=== PATIENT | male | born 1955 | race Caucasian/White ===

== ENCOUNTER 2023-03-02 15:29 | Emergency (ER) | payer OTHER ==
--- OUTSIDE RECORDS SUMMARY | 2023-03-02 15:33 | XMS REPORT | Continuity of Care Document ---
:1955 Author Organization [facility] t Address [address] [place] [address] [place] [id number] Care Team Providers Name Role Phone BRIDGER TORO I Primary Care Physician Unavailable Nurse, [facility] Attending Clinician Unavailable Unknown, Attending Attending Clinician Unavailable Doreen Ayala MD Attending Clinician DOREEN AYALA Attending Clinician Unavailable UNKNOWN, ATTENDING Attending Clinician Unavailable Britt Latham MD Attending Clinician Doctor Unassigned, [place] Attending Clinician Unavailable Nereyda Hurley PT Attending Clinician Unavailable Marina Caba MA Attending Clinician Unavailable Mikki Mojica MA Attending Clinician Unavailable Jose Maria Gleason NP Attending Clinician Diamante Vaz MD Attending Clinician Heather Hyde NP Attending Clinician Kelsey Madden PT Attending Clinician Unavailable Martha Gonzalez Attending Clinician Unavailable BRITT LATHAM Admitting Clinician Unavailable Payers Payer Name Policy Type Policy Number Effective Date Expiration Date S ource Problems Condition Condition Condition Status Onset Resolution Last Treating Co mments Source Name Details Category Date Date Treatment Clinician Date Prostate Prostate Disease Active 2021-10 [facility] cancer cancer 2 st 00:00: Hospita 00 l Lower Lower Disease Active Methodi urinary urinary 07-02 st tract tract 00:00: Hospita symptoms symptoms 00 l due to due to benign benign prostatic prostatic hyperplasi hyperplasi a a Obesity, Obesity, Disease Active Metho di Class I, Class I, 07-02 BMI BMI 00:00: Hospita 30-34.9 30-34.9 00 l Prostate Prostate Disease Active [facility] di cancer cancer 07-02 00:00: Hospita 00 l Benign Benign Disease Active 2019-10 Methodi prostatic prostatic 10-06 st hyperplasi hyperplasi 00:00: Ho spita a without a without 00 l urinary urinary obstructio obstructio n n Sleep Sleep Disease Active Methodi disorder disorder 06-10 00:00: Hospita 00 l Unspecifie Unspecifie Disease Active Overview : Methodi d d 04-[address] hemorrhoid hemorrhoid 00:00: g of this Hospita s s 00 note l might be different from the original. Formattin g of this note might be different from the original. Added automatic ally from request for surgery [id number] matting of this note might be different from the original. Formattin g of this note might be different from the original. Added automatic ally from request for surgery [id number] ED ED Disease Active Methodi (erectile (erectile 04-23 dysfunctio dysfunctio 00:00: Ho spita n) of n) of 00 l organic organic origin origin Hyperlipid Hyperlipid Disease Active M ethodi emia emia 01-09 00:00: Hospita 00 l Hypertensi Hypertensi Disease Active M ethodi on on 01-09 00:00: Hospita 00 l Thalassemi Thalassemi Disease Active M ethodi a minor a minor 01-09 00:00: Hospita 00 l Allergies, Adverse Reactions, Alerts Allergy Allergy Status Severity Reaction(s) Onset Inactive Treating Comm ents Source Name Type Date Date Clinician Sulfa Propensi Active Hives Methodi (Sulfona ty to 816 st mide adverse 00:00: Hospita Antibiot reaction 00 l ics) s to drug SULFA Drug Active Hives Univers (SULFONA Class 9-20 ity of MIDE 00:00: [place] ANTIBIOT 00 Medical ICS) Branch Sulfa Propensi Active Hives Univers (Sulfona ty to 9-20 ity of mide adverse 00:00: [place] Antibiot reaction 00 Medica l ics) s Branch Family History Family Member Diagnosis Comments Start Date Stop Date Source Natural father Heart disease [facility] Natural mother Cancer [facility] Social History Social Habit Start Date Stop Date Quantity Comments Source Gender identity [facility] Sexual orientation [facility] Hospital Exposure to 2023-02-20 2023-03-02 Not sure University SARS-CoV-2 (event) 00:00:00 14:48:00 [facility] Tobacco use and 2023-03-02 2023-03-02 Smokeless tobacco Un iversity of exposure 00:00:00 00:00:00 non-user [facility] History of Social 2022-12-07 2022-12-07 [facility] function 00:00:00 00:00:00 [facility] Alcohol intake 2022-11-09 2022-11-09 Current drinker Metho dist 00:00:00 00:00:00 of [facility] (finding) Cigarettes smoked 2022-06-02 2022-06-02 [facility] current (pack per 00:00:00 00:00:00 Hospita l day) - Reported Cigarette 2022-06-02 2022-06-02 Hindu pack-years 00:00:00 00:00:00 [facility] Alcohol Comment 2017-04-26 2017-04-26 [facility] of 00:00:00 00:00:00 [facility] History of tobacco 2003-10-04 Snuff User Method ist use 00:00:00 [facility] Sex Ass[birth year] At [birth year] [facility] 00:00:00 00:00:00 Hospital Smoking Status Start Date Stop Date Source Never smoked tobacco [facility] Ex-smoker 2022-06-02 00:00:00 2022-06-02 00:00:00 [facility] [place] Medications Ordered Filled Start Stop Current Ordering Indication Dosage Frequency Signature Comments Components Source Medication Medication Date Date Medication? Clinician (SIG) Name Name cyanocobala Yes 5000ug Place Uni vers min, 5-30 5,000 mcg ity of vitamin 14:52: under the [place] B-12, 5,000 58 tongue Medica l mcg Subl daily. Branch tadalafiL 5 Yes 1 tablet Un becca mg tablet 5-30 Orally ity of 14:52: Once a [place] 58 day, prn Medical Branch vitamin C Yes 2000mg Take 2 Univ ers with law 5-30 tablets by ity of hips 1,000 14:52: mouth in [place] as mg tablet 18 the Medical morning. Branch [place]-3-DHA Yes 2000mg Take 2,000 Univers -EPA-Fish 5-30 mg by ity of Oil 1,000 14:52: mouth [place] mg (120 18 daily. Medical mg-180 mg) Branch Cap UBIDECARENO Yes 400mg Take 400 U nivers NE (COQ-10 5-30 mg by ity of ORAL) 14:52: mouth [place] 18 daily. Medical Branch ANTIOX Yes 1{tbl} Take 1 Univers #8/OM3/DHA/ 5-30 tablet by ity of EPA/LUT/PAYAL 14:52: mouth 2 Von as X 18 (two) Medical (PRESERVISI times Branch ON AREDS 2, daily. OMEGA-3, ORAL) CALCIUM Yes 5000U Take 5,000 Uni vers CARBONATE/V 5-30 Units by ity of ITAMIN D3 14:52: mouth [place] (VITAMIN 18 daily. Medical D-3 ORAL) Branch GREEN TEA Yes 400mg Take 400 Uni vers EXTRACT 5-30 mg by ity of ORAL 14:52: mouth [place] 18 daily. Medical Branch FERROUS Yes 1{tbl} Take 1 Univer s FUMARATE/ 5-30 tablet by ity of T BCOMP,C 14:52: mouth [place] (SUPER B 18 daily. Medical COMPLEX Branch ORAL) GLUC/CHND/O Yes 1{tbl} Take 1 Un becca M3/DHA/EPA/ 5-30 tablet by ity of FISH/STR 14:52: mouth [place] (GLUCOSAMIN 18 daily. Medica l E Branch CHONDROITIN PLUS ORAL) hydrocortis Yes 25mg Insert 1 Un becca one 25 mg 5-30 Suppositor ity of suppository 14:52: y [place] 18 rectum in Medical the Branch morning and 1 Suppositor y in the evening. Myrbetriq 2023-0 Yes TAKE ONE Meth juana 50 mg 4-[address] tablet 00:00: MOUTH Hospita extended 00 DAILY l release 24 hr mirabegron 2022-0 2023- No 50mg QD Take 1 Meth juana (Myrbetriq) 23 04-25 tablet (50 s t 50 mg 00:00: 00:00 mg total) Hospit a tablet 00 :00 by mouth l extended daily for release 24 30 days. hr finasteride 2022-0 Yes 5mg QD Take 1 Meth juana (PROSCAR) 5 2-06 tablet (5 st mg tablet 10:42: mg total) Hos mathieu 36 by mouth l daily. simvastatin 0 Yes 20mg QD Take 1 Meth juana (ZOCOR) 20 2-06 tablet (20 st mg tablet 10:42: mg total) Hos mathieu 36 by mouth l nightly. cycloSPORIN 0 Yes 1[drp] Q.5D 1 drop 2 Methodi E 2-06 (two) st (RESTASIS) 10:42: times a Hosp janeth 0.05 % 36 day. l ophthalmic emulsion lisinopriL 0 Yes 10mg QD Take 1 Metho di (PRINIVIL) 2-06 tablet (10 st 10 mg 10:42: mg total) Hospita tablet 36 by mouth l daily. CHONDROITIN 0 Yes Take by Met hodi SULFATE A 2-[address] ORAL 10:42: Hospita 36 l omega-3 0 Yes Take by Methodi fatty acids 2-[address] (FISH OIL 10:42: Hospita CONCENTRATE 36 l ORAL) ascorbic 2022-0 Yes 100mg QD Take 1 Method i acid, 2-[address] vitamin C, 10:42: (100 mg Hosp janeth (VITAMIN C) 36 total) by l 100 MG mouth tablet daily. vitamin B 0 Yes Take by Metho di complex vit 2-[address] C no.4 10:42: Hospita (SUPER B 36 l COMPLEX + C ORAL) methylsulfo 2022-0 Yes Take by Met hodi nylmethane 2-[address] (MSM ORAL) 10:42: Hospita 36 l glucosamine 2022-0 Yes Take by Met hodi /chondroiti 2-[address] n/C/Mack 10:42: Hospita (GLUCOSAMIN 36 l E 1500 COMPLEX ORAL) cholecalcif Yes Take by Met ahmet luis, 11-[address] vitamin D3, 10:42: Hospit a (VITAMIN D3 36 l ORAL) fluticasone Yes 100ug QD 2 sprays M ethodi propionate 11-09 ([address] (FLONASE) 10:42: total) by Hos mathieu 50 36 Each Nare l mcg/actuati route on nasal daily. spray docusate 2021-10 No 100mg Q.5D Take 1 Metho di sodium 11-[address] (Colace) 00:00: 05:59 (100 mg Hospi ta 100 MG 00 :00 total) by l capsule mouth 2 (two) times a day for 30 days. traMADoL 2021-10 [id number] 50mg Q6H Take 1 Metho di (ULTRAM) 50 11-05 tablet (50 s t mg tablet 00:00: 05:59 mg total) Ho spita 00 :00 by mouth l every 6 (six) hours as needed for moderate pain for up to 10 days .acute pain. oxybutynin 2021-10 10mg Q24H Take 1 Meth juana XL 11-05 tablet (10 st (Ditropan 00:00: 05:59 mg total) Ho spita XL) 10 MG 00 :00 by mouth l 24 hr daily as tablet needed (bladder spasms) for up to 10 days. ciprofloxac 2021-10 No 500mg Q.5D Take 1 Me thodi in (Cipro) 11-[address] 500 MG 00:00: 05:59 (500 mg Hospita tablet 00 :00 total) by l mouth 2 (two) times a day for 3 days. potassium 2021-10 Take by Meth juana bicarbonate 11-[address] /cit ac 06:12: 00:00 Hospita (POTASSIUM 52 :00 l BICARB-CITR IC ACID ORAL) tadalafiL 2021-10 No 5mg Q24H Take 1 Metho di (CIALIS) 5 11-04 tablet (5 st MG tablet 06:12: 00:00 mg total) Ho spita 06 :00 by mouth l daily as needed for erectile dysfunctio n. GREEN TEA 2021-10 Take by Meth juana EXTRACT 10-[address] ORAL 13:44: 00:00 Hospita 44 :00 l tamsulosin 2021-10 .4mg QD Take 1 Meth juana (FLOMAX) 10-[address] 0.4 mg 13:44: 00:00 (0.4 mg Hospita capsule 01 :00 total) by l mouth daily. HYDROcodone 2021-10 No [id number] 1{tbl} Q6H Take 1 Methodi -acetaminop 10-[address] hen (NORCO) 13:43: 00:00 mouth Hosp janeth 5-325 mg 56 :00 every 6 l per tablet (six) hours as needed for moderate pain .acute pain. Max Daily Amount: 4 tablets tadalafiL 2021-10 No 20mg Q24H Take 1 Metho di (CIALIS) 20 10-25- tablet (20 s t mg tablet 00:00: 05:59 mg total) Ho spita 00 :00 by mouth l daily as needed for erectile dysfunctio n for up to 90 days. tadalafiL 2021-10 No 5mg Q24H Take 1 Metho di (CIALIS) 5 10-25 tablet (5 st MG tablet 00:00: 05:59 mg total) Ho spita 00 :00 by mouth l daily as needed for erectile dysfunctio n for up to 30 days. tadalafiL 2021-10 No 20mg Q24H Take 1 Metho di (CIALIS) 20 10-25 12- tablet (20 s t mg tablet 00:00: 00:00 mg total) Ho spita 00 :00 by mouth l daily as needed for erectile dysfunctio n for up to 30 days. ANTIOX 2017-0 Yes 1{tbl} Take 1 Univers #8/OM3/DHA/ 9-21 tablet by ity of EPA/LUT/PAYAL 13:16: mouth 2 Von as X 11 (two) Medical (PRESERVISI times Branch ON AREDS 2, daily. OMEGA-3, ORAL) CALCIUM Yes 5000U Take 5,000 Uni vers CARBONATE/V 9-21 Units by ity of ITAMIN D3 13:16: mouth [place] (VITAMIN 11 daily. Medical D-3 ORAL) Branch GREEN TEA Yes 400mg Take 400 Uni vers EXTRACT 9-21 mg by ity of ORAL 13:16: mouth [place] 11 daily. Medical Branch cyanocobala Yes 5000ug Place Uni vers min, 9-21 5,000 mcg ity of vitamin 13:16: under the [place] B-12, 11 tongue Medical (VITAMIN daily. Branch B-12) 5,000 mcg Subl FERROUS 2017- Yes 1{tbl} Take 1 Univer s FUMARATE/ 9-21 tablet by ity of T BCOMP,C 13:16: mouth [place] (SUPER B 11 daily. Medical COMPLEX Branch ORAL) GLUC/CHND/O Yes 1{tbl} Take 1 Un becca M3/DHA/EPA/ 9-21 tablet by ity of FISH/STR 13:16: mouth [place] (GLUCOSAMIN 11 daily. Medica l E Branch CHONDROITIN PLUS ORAL) hydrocortis Yes 25mg Insert 25 U nivers one 25 mg 9-21 mg into ity of suppository 13:16: rectum 2 [place] 11 (two) Medical times Branch daily. vitamin C Yes 2000mg Take 2,000 Univers with law 9-07 mg by ity of hips 13:11: mouth [place] (VITAMIN C) 06 daily. Medica l 1,000 mg Branch tablet [place]-3-DHA Yes 2000mg Take 2,000 Univers -EPA-Fish 9-07 mg by ity of Oil (FISH 13:11: mouth [place] OIL) 1,000 06 daily. Medical mg (120 Branch mg-180 mg) Cap UBIDECARENO 2017 Yes 400mg Take 400 U nivers NE (COQ-10 9-07 mg by ity of ORAL) 13:11: mouth [place] 06 daily. Medical Branch acetaminoph Yes 1{tbl} Take 1 Un becca en-codeine 7-28 tablet by ity of 300-30 mg 00:00: mouth [place] tablet 00 every 4 Medical (four) Branch hours as needed for Pain (scale 1-3). acetaminoph 2017-0 Yes 1{tbl} Take 1 Un becca en-codeine 7-28 tablet by ity of 300-30 mg 00:00: mouth [place] tablet 00 every 4 Medical (four) Branch hours as needed for Pain (scale 1-3). HYDROmorphO 2017-0 Yes 2mg Take 1 Univ ers ne 2 mg 7-27 tablet by ity of tablet 00:00: mouth [place] 00 every 4 Medical (four) Branch hours as needed for Pain (scale 7-10). gabapentin 2017-0 Yes 300mg Take 1 Univ ers 300 mg 7-27 capsule by ity of capsule 00:00: mouth [place] 00 every 8 Medical (eight) Branch hours. For pain scale 1-3 naproxen 2017-0 Yes 500mg Take 1 Univer s 500 mg 7-27 tablet by ity of tablet 00:00: mouth 2 [place] 00 (two) Medical times Branch daily with meals. HYDROmorphO 2017-0 Yes 2mg Take 1 Univ ers ne 2 mg 7-27 tablet by ity of tablet 00:00: mouth [place] 00 every 4 Medical (four) Branch hours as needed for Pain (scale 7-10). gabapentin 2017-0 Yes 300mg Take 1 Univ ers 300 mg 7-27 capsule by ity of capsule 00:00: mouth [place] 00 every 8 Medical (eight) Branch hours. For pain scale 1-3 naproxen 2017-0 Yes 500mg Take 1 Univer s 500 mg 7-27 tablet by ity of tablet 00:00: mouth 2 [place] 00 (two) Medical times Branch daily with meals. alfuzosin 2015-0 Yes 10mg Take 10 mg Un becca (UROXATRAL) 8-02 by mouth ity of 10 mg 24 hr 00:00: [place]. [place] tablet 00 Medical Branch alfuzosin 2016-0 Yes 10mg Take 1 Univer s (UROXATRAL) 8-02 tablet by ity of 10 mg 24 hr 00:00: mouth in [place] tablet 00 the Medical morning. Branch PROCTOZONE- 2016-0 Yes APPLY TO Un becca HC 2.5 % 8 THE ity of rectal 00:00: AFFECTED [place] cream 00 AREA BID Medical FOR 7 DAYS Branch PROCTOZONE- 2016-0 Yes APPLY TO Un becca HC 2.5 % 05-04 THE ity of rectal 00:00: AFFECTED [place] cream 00 AREA BID Medical FOR 7 DAYS Branch CIALIS 20 Yes 20mg Take 20 mg Un becca mg tablet 7-21 by mouth ity of 00:00: as needed. 00 Medical Branch CIALIS 20 Yes 20mg Take 1 Univer s mg tablet 7-21 tablet by ity o f 00:00: mouth as 00 needed. Medical Branch lisinopril Yes 10mg Take 10 mg U nivers (PRINIVIL,Z 7-13 by mouth ity of ESTRIL) 10 00:00: daily. [place] mg tablet 00 Medical Branch simvastatin Yes 20mg Take 20 mg Univers (ZOCOR) 20 7-13 by mouth ity o f mg tablet 00:00: every [place] 00 evening. Medical Branch lisinopril Yes 10mg Take 1 Unive rs (PRINIVIL,Z 7-13 tablet by ity of ESTRIL) 10 00:00: mouth in Von as mg tablet 00 the Medical morning. Branch simvastatin Yes 20mg Take 1 Univ ers (ZOCOR) 20 7-13 tablet by ity of mg tablet 00:00: mouth [place] 00 every Medical evening. Branch Vital Signs Vital Name Observation Time Observation Value Comments Source Systolic blood 2023-03-02 20:08:00 157 mm[Hg] Univer sity of pressure [facility] Diastolic blood 2023-03-02 20:08:00 107 mm[Hg] Unive rsity of pressure [facility] Heart rate 2023-03-02 20:08:00 82 /min [facility] Body temperature 2023-03-02 20:08:00 36.39 Kesha [facility] Res[facility] rate 2023-03-02 20:08:00 18 /min [facility] ersity [facility] Body weight 2023-03-02 20:08:00 110.904 kg [facility] BMI 2023-03-02 20:08:00 35.08 kg/m2 [facility] Oxygen saturation in 2023-03-02 20:08:00 95 /min [facility] Arterial blood by [facility] [place] [facility] Pulse oximetry Branch Systolic blood 2022-09-04 17:56:13 112 mm[Hg] Method is Hospital pressure Diastolic blood 2022-09-04 17:56:13 70 mm[Hg] [facility] pressure Heart rate 2022-09-04 17:56:13 78 /min [facility] [place] Body temperature 2022-09-04 17:56:13 35.94 Kesha [facility] Respiratory rate 2022-09-04 17:56:13 16 /min [facility] Oxygen saturation in 2022-09-04 17:56:13 91 /min [facility] Arterial blood by Pulse oximetry Body height 2022-09-03 12:10:00 177.8 cm [facility] [place] Body weight 2022-09-03 12:10:00 106.142 kg [facility] [place] BMI 2022-09-03 12:10:00 33.58 kg/m2 [facility] [place] Procedures Procedure Date / Time Performing Clinician Source Performed ASSIGNMENT OF BENEFITS 2023-03-02 19:38:52 [facility] [place] [facility] TEST IN QUESTION- 2022-11-09 17:41:00 Britt Latham [facility] AMBIGUOUS ORDER [id number], POST-PROSTATECTOMY 2022-11-09 17:41:00 Britt Latham [facility] TEST AUTHORIZATION 2022-11-09 17:41:00 Britt Latham [facility] FL CYSTOGRAM MINIMUM 3 VW 2022-09-10 16:08:11 Britt Latham [facility] HEMOGLOBIN & HEMATOCRIT 2022-09-04 17:41:00 Gabby Engel [facility] BASIC METABOLIC PANEL 2022-09-04 09:08:00 [facility] HEMOGLOBIN & HEMATOCRIT 2022-09-04 09:08:00 [facility] ESTIMATED GFR 2022-09-04 09:08:00 Britt Latham [facility] BASIC METABOLIC PANEL 2022-09-03 17:13:00 Britt Latham [facility] HEMOGLOBIN & HEMATOCRIT 2022-09-03 17:13:00 Britt Latham [facility] ESTIMATED GFR 2022-09-03 17:13:00 Britt Latham [facility] SURGICAL PATHOLOGY 2022-09-03 15:44:00 Britt Latham [facility] REQUEST HC NERVE BLOCK QUADRATUS 2022-09-03 13:36:16 Diamante Vaz Met [facility] LUMBORUM VA AN ELECTIVE 2022-09-03 13:34:00 Nusrat Neely spital ENDOTRACHEAL AIRWAY [place]celia PROSTATECTOMY, 2022-09-03 13:25:00 Britt Lathamtal LAPAROSCOPIC, ROBOT-ASSISTED ABO/RH 2022-09-03 12:01:00 Britt Lathamtal PREPARE RBC 2022-09-03 12:01:00 Monie, Thaiphi Akin Lou spianuj URINALYSIS SCREEN AND 2022-08-25 19:53:00 [facility] MICROSCOPY, WITH REFLEX Shefali TO CULTURE TYPE AND SCREEN 2022-08-25 19:52:00 [facility] Shefali TESTOSTERONE, TOTAL AND 2022-08-25 19:52:00 [facility] Branch FREE, IMMUNOASSAY AND Shefali CALCULATION (FOR ADULT MALES) PROTHROMBIN TIME WITH INR 2022-08-25 19:52:00 [facility] PARTIAL THROMBOPLASTIN 2022-08-25 19:52:00 [facility] TIME (PTT) Shefali HIV 1/2 ANTIGEN/ANTIBODY, 2022-08-25 19:52:00 [facility] FOURTH GENERATION, WITH Shefali REFLEXES BASIC METABOLIC PANEL 2022-08-25 19:52:00 [facility] Shefali CBC WITH PLATELET AND 2022-08-25 19:52:00 [facility] DIFFERENTIAL Shefali ESTIMATED GFR 2022-08-25 19:52:00 Britt Latham maggi HEPATIC FUNCTION PANEL 2022-08-25 19:52:00 Heather Hyde [facility] URINE CULTURE 2022-08-25 19:50:00 Britt Latham maggi ECG 12-LEAD 2022-08-25 19:43:21 Rosibel [facility] maggi Meehan MRI PROSTATE WWO CONTRAST 2022-07-01 18:58:45 Britt Latham [facility] Plan of Care Planned Activity Planned Date Details Comments Source Future Scheduled 2023-03-02 65+ [facility]OCOCCAL [facility] Test 10:03:41 VACCINE (1 - PCV) [code = 65+ PNEUMOCOCCAL VACCINE (1 - PCV)] Future Scheduled 2023-03-02 Hepatitis C screening [facility] Test 10:03:41 (procedure) [code = 028210579] Future Scheduled 2023-03-02 COLONOSCOPY SCREENING [facility] Test 10:03:41 [code = COLONOSCOPY SCREENING] Future Scheduled 2023-03-02 COVID-19 VACCINE (4 - [facility] Test 10:03:41 Booster for Moderna series) [code = COVID-19 VACCINE (4 - Booster for Moderna series)] Future Scheduled 2023-03-02 INFLUENZA VACCINE Method ist Hospital Test 10:03:41 [code = INFLUENZA VACCINE] Encounters Start End Encounter Admission Attending Care Care Encounter Source Date/Time Date/Time Type Type Clinicians Facility Department ID 2023-03-02 2023-03-02 Nurse Nurse, [facility] [id number] Univers 15:00:00 15:20:00 Visit Unknown, Attending HEALTH 350.1.13.10 Doreen Gramajo 4.2.7.2.686 [facility]?BLEA [phone] [address] MEDICAL OFFICE BUILDING 2023-03-02 2023-03-02 Outpatient R JAMAR [facility] [id number] Univers 15:00:00 15:00:00 DOREEN [facility] 2023-03-02 2023-03-02 Outpatient R FERNANDA [facility] [id number] Univers 14:40:00 14:40:00 ATTENDING [facility] 2023-03-02 2023-03-02 Telephone Miles, 1.2.840.1 [id number] Methodi 00:00:00 00:00:00 Britt Mcclain 69270.1.1 984 3.430.2.7 Hospit a .3.547294 l .8 2023-03-02 2023-03-02 Orders Doctor SHUKLA 1.2.840.114 [id number] Univers 00:00:00 00:00:00 Only Unassigned, DEONTE 350.1.13.10 ity of [place] [facility] 4.2.7.2.686 Von as [phone] [place] [address] Branch 2023-02-15 2023-02-15 Treatment Britt Latham. 1.2.840.1 [id number] Methodi 10:30:00 11:15:00 Nereyda Hurley [address]54.1.[address] 3.430.2.7 Hospit a .3.621855 l .8 2023-02-15 2023-02-15 Travel 1.2.840.1 1.2.791.430 [id number] Methodi 00:00:00 00:00:[address] 3.430.2.7 0.2.7.3.698 Ho spita .3.751715 084.8 l .8 2023-02-15 2023-02-15 [facility]patient [facility] [id number] [place] 00:00:00 00:00:00 BRITT [address] 2023-02-01 2023-02-01 Treatment Britt Latham. 1.2.840.1 [id number] Methodi 10:30:00 11:15:00 Nereyda Hurley 61960.1.[address] 3.430.2.7 Hospit a .3.095677 l .8 2023-02-01 2023-02-01 Travel 1.2.840.1 1.2.906.846 [id number] Methodi 00:00:00 00:00:[address] 3.430.2.7 0.2.7.3.698 Ho spita .3.080563 084.8 l .8 2023-02-01 2023-02-01 Outpatient [facility] [id number] [place] 00:00:00 00:00:00 BRITT [address] 2023-01-25 2023-01-25 Refill Yeison, 1.2.840.1 [id number] Methodi 00:00:00 00:00:00 Britt Mcclain 07127.1.[address] 3.430.2.7 Hospit a .3.394595 l .8 2023-01-18 2023-01-18 Treatment Britt Latham Camilo. 1.2.840.1 [id number] 001 [id number] Methodi 10:30:00 11:15:00 Nereyda Hurley 15769.1.[address] 3.430.2.7 Hospit a .3.774542 l .8 2023-01-18 2023-01-18 Travel 1.2.840.1 1.2.827.679 [id number] Methodi 00:00:00 00:00:[address] 3.430.2.7 0.2.7.3.698 Ho spita .3.055444 084.8 l .8 2023-01-18 2023-01-18 [facility] [id number] [place] 00:00:00 00:00:00 BRITT [address] 2023-01-04 2023-01-04 Treatment Yeison Britt Page. 1.2.840.1 [id number] Methodi 10:30:00 11:15:00 Nereyda Hurley 14786.1.[address] 3.430.2.7 Hospit a .3.294909 l .8 2023-01-04 2023-01-04 [facility] [id number] [place] 00:00:00 00:00:00 BRITT [address] 2022-12-21 2022-12-21 Treatment Yeison Britt Page. 1.2.840.1 [id number] Methodi 10:30:00 11:15:00 Nereyda Hurley 96117.1.[address] 3.430.2.7 Hospit a .3.017521 l .8 2022-12-21 2022-12-21 Documentat Caba, 1.2.840.1 [id number] Methodi 00:00:00 00:00:00 ailin Gray [address]447.1.[address] 3.430.2.7 Hospit a .3.190778 l .8 2022-12-21 2022-12-21 Outpatient YEISON [facility] [id number] [place] 00:00:00 00:00:00 BRITT [address] [facility] i [facility] 2022-12-09 2022-12-09 Documentat Caba, 1.2.840.1 [id number] Methodi 00:00:00 00:00:00 ailin Gray [address]43.1.[address] 3.430.2.7 Hospit a .3.041702 l .8 2022-12-07 2022-12-07 Documentat Caba, 1.2.840.1 [id number] 21 [id number] Methodi 00:00:00 00:00:00 ailin Gray [address]24.1.[address] 3.430.2.7 Hospit a .3.446353 l .8 2022-12-07 2022-12-07 Millis Yeison, 1.2.840.1 [id number] 2100 [id number] Methodi 00:00:00 00:00:00 Britt Mcclain 22969.1.[address] 3.430.2.7 Hospit a .3.593421 l .8 2022-12-01 2022-12-01 Evaluation Britt Latham 1.2.840.1 76852 8001 [id number] Methodi 11:00:00 12:00:00 Nereyda Hurley 16638.1.[address] 3.430.2.7 Hospit a .3.442288 l .8 2022-12-01 2022-12-01 Documentat Caba, 1.2.840.1 [id number] 21 [id number] Methodi 00:00:00 00:00:00 ailin Gray 68198.1.[address] 3.430.2.7 Hospit a .3.509018 l .8 2022-12-01 2022-12-01 Plan 1.2.840.1 [id number] 796115 8487 Methodi 00:00:00 00:00:[address] Documentat 3.430.2.7 Hos mathieu ailin .3.675339 l .8 2022-12-01 2022-12-01 Travel 1.2.840.1 1.2.419.419 0485 907560 Methodi 00:00:00 00:00:[address] 3.430.2.7 0.2.7.3.698 Ho spita .3.559872 084.8 l .8 2022-12-01 2022-12-01 Outpatient MILES, [facility] [id number] [place] 00:00:00 00:00:00 BRITT Vance Method i st 2022-11-27 2022-11-27 Telephone Miles, 1.2.840.1 [id number] 2099 [id number] Methodi 00:00:00 00:00:00 Britt Mcclain 23703.1.[address] 3.430.2.7 Hospit a .3.176351 l .8 2022-11-26 2022-11-26 Orders Mojica, 1.2.840.1 [id number] 94883 Methodi 00:00:00 00:00:00 Only Mikki 39632.1.[address] 3.430.2.7 Hospit a .3.884751 l .8 2022-11-13 2022-11-13 Orders Mojica, 1.2.840.1 [id number] 42515 62085 Methodi 00:00:00 00:00:00 Only Mikki 42158.1.[address] 3.430.2.7 Hospit a .3.047560 l .8 2022-11-12 2022-11-12 Telephone Miles, 1.2.840.1 [id number] 2099 158975 Methodi 00:00:00 00:00:00 Britt Mcclain 98907.1.[address] 3.430.2.7 Hospit a .3.749623 l .8 2022-11-09 2022-11-09 Office Miles, 1.2.840.1 [id number] 624016 7041 Methodi 10:45:00 11:00:00 Visit Britt J. 51576.1.[address] 3.430.2.7 Hospit a .3.283497 l .8 2022-11-09 2022-11-09 Travel 1.2.840.1 1.2.748.491 0639 804736 Methodi 00:00:00 00:00:[address] 3.430.2.7 0.2.7.3.698 spita .3.200076 084.8 l .8 2022-11-09 2022-11-09 [facility] [id number] 340 [place] 00:00:00 00:00:00 BRITT Lara8 Method i [address] 2022-11-04 2022-11-04 Orders Darrell, 1.2.840.1 [id number] 47314 68312 Methodi 00:00:00 00:00:00 Only Mikki 59878.1.[address] 3.430.2.7 Hospit a .3.811551 l .8 2022-08-25 2022-10-30 Office Florence, 1.2.840.1 [id number] 87364 78036 Methodi 11:00:00 07:24:29 Visit Jose Maria 53434.1.[address] Shefali 3.430.2.7 Hospit a .3.550293 l .8 2022-09-10 2022-09-10 [facility] 1.2.840.1 [id number] 85656 05777 Methodi 09:26:04 23:59:00 Encounter Britt Mcclain 53910.1.1 219 s t 3.430.2.7 Hospit a .3.755652 l .8 2022-09-10 2022-09-10 Office Florence, 1.2.840.1 [id number] 97966 06038 Methodi 10:30:00 11:34:15 Visit Jose Maria 12068.1.[address] Shefali 3.430.2.7 Hospit a .3.020987 l .8 2022-09-10 2022-09-10 Travel 1.2.840.1 1.2.464.156 3912 764852 Methodi 00:00:00 00:00:[address] 3.430.2.7 0.2.7.3.698 spita .3.026220 084.8 l .8 2022-09-10 2022-09-10 [facility] [id number] 784 [place] 00:00:00 00:00:00 BRITT [address] 2022-09-10 2022-09-10 Outpatient [facility] [id number] 788 [place] 00:00:00 00:00:[address] 2022-09-03 2022-09-04 [facility] 1.2.840.1 [id number] 78145 64043 Methodi 05:14:00 16:41:00 Encounter Britt Mcclain 42257.1.1 762 s t 3.430.2.7 Hospit a .3.742788 l .8 2022-09-03 2022-09-[address] [facility] 006 [id number] 015 [place] 00:00:00 00:00:00 BRITT [address] 2022-09-03 2022-09-03 Surgery Yeison, 1.2.840.1 [id number] 209534 2716 Methodi 07:30:00 11:30:00 Britt Mcclain 55979.1.[address] 3.430.2.7 Hospit a .3.804098 l .8 2022-09-03 2022-09-03 Anesthesia Diamante Vaz 1.2.840.1 [id number] Methodi 07:25:00 10:55:00 Event Heather Hyde 43498.1.[address] 3.430.2.7 Hospit a .3.370136 l .8 2022-08-25 2022-08-31 Pre-Admiss Yeison 1.2.840.1 [id number] 996 [id number] Methodi 13:00:00 00:05:20 ailin Mcclain 09686.1.[address] Testing 3.430.2.7 Hospit a .3.511879 l .8 2022-08-25 2022-08-25 Evaluation Britt Latham 1.2.840.1 32667 4001 [id number] Methodi 09:30:00 13:21:13 Kelsey Madden 69487.1.[address] 3.430.2.7 Hospit a .3.698812 l .8 2022-08-25 2022-08-25 Orders Darrell, 1.2.840.1 [id number] 13080 27196 Methodi 00:00:00 00:00:00 Only Mikki 99868.1.[address] 3.430.2.7 Hospit a .3.845543 l .8 2022-08-25 2022-08-25 Telephone Miles, 1.2.840.1 [id number] 2100 667210 Methodi 00:00:00 00:00:00 Britt Mcclain 99622.1.[address] 3.430.2.7 Hospit a .3.245311 l .8 2022-08-25 2022-08-25 Plan of 1.2.840.1 [id number] 510139 7901 Methodi 00:00:00 00:00:[address] Documentat 3.430.2.7 Hos mathieu ion .3.289693 l .8 2022-08-25 2022-08-25 Travel 1.2.840.1 1.2.769.189 2337 167024 Methodi 00:00:00 00:00:[address] 3.430.2.7 0.2.7.3.698 Ho spita .3.830427 084.8 l .8 2022-08-25 2022-08-25 Outpatient [facility] [id number] 780 [place] 00:00:00 00:00:[address] 2022-08-25 2022-08-25 Outpatient MILES, [facility] [id number] 017 [place] 00:00:00 00:00:00 BRITT [address] 2022-08-25 2022-08-25 Outpatient MILES, [facility] [id number] 886 [place] 00:00:00 00:00:00 BRITT [address] 2022-07-07 2022-07-07 Telephone Miles, 1.2.840.1 [id number] 2099 [id number] Methodi 00:00:00 00:00:00 Britt Mcclain 20905.1.[address] 3.430.2.7 Hospit a .3.536306 l .8 2022-07-07 2022-07-07 Telephone Carlos, 1.2.840.1 [id number] 2099 510673 Methodi 00:00:00 00:00:[address] 3.430.2.7 Hospit a .3.030823 l .8 2022-07-07 2022-07-07 Transcribe Yeison, 1.2.840.1 [id number] 130 [id number] Methodi 00:00:00 00:00:00 Orders Britt Mcclain 14895.1.[address] 3.430.2.7 Hospit a .3.746458 l .8 2022-07-01 2022-07-01 [facility], 1.2.840.1 [id number] 75730 83065 Methodi 12:06:12 23:59:00 Encounter Britt Mcclain 93093.1.1 413 s t 3.430.2.7 Hospit a .3.478984 l .8 2022-07-01 2022-07-01 Travel 1.2.840.1 1.2.438.655 3912 926594 Methodi 00:00:00 00:00:[address] 3.430.2.7 0.2.7.3.698 Ho spita .3.601710 084.8 l .8 2022-07-01 2022-07-01 [facility] [id number] 710 [place] 00:00:00 00:00:00 BRITT Patel Method i st 2022-06-24 2022-06-24 Telephone Carlos, 1.2.840.1 [id number] 2099 [id number] Methodi 00:00:00 00:00:[address] 3.430.2.7 Hospit a .3.634466 l .8 2022-06-02 2022-06-21 Office Miles, 1.2.840.1 [id number] 844570 5470 Methodi 15:30:00 00:19:55 Visit Britt Mcclain 40634.1.[address] 3.430.2.7 Hospit a .3.491874 l .8 2022-06-02 2022-06-02 Travel 1.2.840.1 1.2.063.134 0948 379479 Methodi 00:00:00 00:00:[address] 3.430.2.7 0.2.7.3.698 Ho spita .3.160709 084.8 l .8 2022-06-02 2022-06-02 Outpatient EDGEMOOR, [facility] [id number] 374 [place] 00:00:00 00:00:00 BRITT [address] 2022-05-19 2022-05-19 Abstract Carlos, 1.2.840.1 [id number] 86000 00117 Methodi 00:00:00 00:00:[address] 3.430.2.7 Hospit a .3.760047 l .8 Results Test Description Test Time Test Comments Results Result Comments Source TEST AUTHORIZATION 2022-11-19 01:41:00 Test Item Value Reference Range Interpretation Comme nts TEST(S) ORDERED ON PSA, POST-PROSTATECTOMY REQUISITION (test code = 43563-1) TEST CODE: (test code 73194DIXE = 98745-4) CLIENT CONTACT: (test MIKKI MOJICA code = 0693) REPORT ALWAYS MESSAGE The l aboratory testing on this SIGNATURE (test code patient was verbally requestedor = 7949) confirmed by [facility] ordering physician or hi s or her authorizedrepre sentative after contact with an employee of [facility] regulations require that we maintain on file writtenauthoriz ation for all laboratory test ing. Accordingly we are askingth at the ordering physician or hi s or her authorized repr esentativesign a copy of this re port and promptly return it to [facility] clientservice sales representative education courses. Signature: (Always message) Please fax this signed form to (test code = 2647) . Please donot attempt to retu rn this document by other method s.Documents will not be viewed b y a sales representative education courses. Please do not use this fax number for other service requests. RAC (test code = RAC) Performing Organization Information: Site ID: IG Name: [facility] Address: [address] [place] [address] Director: Dr. Jeff Hughes [facility], [id number] 01:41:00 Test Item Value Reference Range Interpretation Comments PSA, ICMA <0.02 ng/mL REFERENCE RANG ES for (test code PSA: LESS THAN 0.10 ng/mL = 37424-4) AFTER RADICAL PROSTATECTOMY. 4.0 ng/mL OR LESS IN HEAL THY MALES WITHOUT PROSTAT ECTOMY. PSA values obta ined with different assay methods or kitscannot b e used interchangeably . This test was perfor med using the Jose Cou lter DxImethod. PSA, ICMA is not to be used as a diagnosticproce dure without confirm ation of the diagnosis b y anotherestablis hed product or proc edure. The lower limit of accurate quantification for this assay is0.02 ng /mL. PSA values less gwendolyn n 0.02 ng/mL cannot be accurately measured and wi ll be reported as les s than 0.02ng/mL. Spec imens with PSA levels belo w the lower limit ofa ccurate quantification should be considered as n egative. Inpatients with a negative result for post prostatectomy P SA,serial monitoring of P SA levels at regular inte rvals, alongwith physi kayla examinations an d other tests, may help todetect recurrent prost ate cancer. RAC (test Performing code = RAC) Organization Information: Site ID: EZ Name: [facility], Address: [address] [place] [id number] Director: Maya Sawyer MD,PhD,SERGIO [facility] IN QUESTION- AMBIGUOUS [id number] 10:05:00 Test Item Value Reference Interpretation Comments Range TEST IN WE ARE UNABLE T O QUESTION- ASCERTAIN THE T EST(S) AMBIGUOUS YOU DESIREFROM THE ORDER (test FOLLOWING WRITT EN code = 3300) ORDER. UNCLEAR ORDER: VERIFY TC FOR PSA (test code = ULTRASENSITIVE 3348) Comment (test Requested info rmation code = [id number]) Auth orized signature To prevent further delays in testing, please completeinforma tion above and fax t o [phone] or email [email or web address] to re solve this order. RAC (test code Performing = RAC) Organization Information: Site ID: [facility] Name: [facility] Address: [address] [place] [phone] Director: Jeff Hughes [facility] [id number] 16:28:31 Test Item Value Reference Range Interpretation Comments Case number (test [id number] code = 4888411) Surgical pathology See link below for PDF report (test code = Lab Report 2255) Result status (test This is Supplemental code = 8377073) Report for [id number] [facility] 12 [id number] 01:29:14 Test Item Value Reference Range Interpretation Comments Ventricular rate (test 72 code = 253) Atrial rate (test code = 72 255) VA interval (test code = 170 266) QRSD interval (test code 86 = 260) QT interval (test code = 384 264) QTC interval (test code 420 = 265) P axis 1 (test code = 65 267) QRS axis 1 (test code = -15 268) T wave axis (test code = 47 270) EKG impression (test Normal sinus code = 273) rhythm-Normal ECG-No previous ECGs available-Electronica lly Signed By Uday Bravo MD ([id number]) on 08/25/2022 7:29:[address] [facility]2022-11-22 21:28:00 Test Item Value Reference Range Interpretation Comments Urine culture (test SEE COMMENT Bacteriu jia screen code = 9199485) negative. [facility]
--- NOTE | 2023-03-02 17:08 | RAD REPORT ---
EXAM DESCRIPTION: Derrick Single View03/02/2023 5:03 pm CLINICAL HISTORY: Shortness of breath COMPARISON: none FINDINGS: The lungs appear clear of acute infiltrate. The heart is normal size IMPRESSION: No acute abnormalities displayed
--- NOTE | 2023-03-02 17:08 | RAD REPORT ---
EXAM DESCRIPTION: USExtrem Venous W Compress Bil03/02/2023 4:49 pm CLINICAL HISTORY: Leg swelling COMPARISON: none FINDINGS: Evaluation of distal left common femoral vein was limited. There does appear to be diminis hed color Doppler with echoes within the vein. The remainder of the common femoral, superficial femoral, greater saphenous, popliteal and posterior tibial veins bilaterally are compressible and demonstrate augmentation. Doppler demonstrates good flow. Grayscale, color and spectral analysis performed on all vessels IMPRESSION: Probable acute thrombus distal left superficial femoral vein
[2023-03-02 17:27] LABS: Absolute Lymphocytes (CBC) 1.3 K/uL (0.7-4.9); Hematocrit 35.6 % (39.6-49.0); Lymphocytes % 19.8 % (15.3-44.8); MCV 65.9 fL (80-100); MPV 9.2 fL (7.6-11.3)
[2023-03-02 17:32] LABS: Protime INR 1.07
[2023-03-02 17:49] LABS: Potassium 4.2 mEq/L (3.5-5.1); Troponin High Sensitivity 4.7 pg/mL (<58.9)
--- NOTE | 2023-03-02 18:39 | RAD REPORT ---
EXAM DESCRIPTION: CT - Chest For Pe Angio - 03/02/2023 6:20 pm CLINICAL HISTORY: sob COMPARISON: None. TECHNIQUE: Dynamically enhanced axial 3 mm thick images of the chest were obtained during administra tion of 100 mL Isovue 370 IV contrast. Coronal and oblique reconstruction images were generated and r eviewed. Exam utilizes a protocol for optimal evaluation of pulmonary arterial tree. Maximum intensity projections 3D imaging was utilized All CT scans are performed using dose optimization technique as appropriate and may include automated exposure control or mA/KV adjustment according to patient size. FINDINGS: A pulmonary embolus is not seen. A thoracic aortic aneurysm is not noted. A pleural effusion is not seen. A pericardial effusion is not seen. A lung consolidation is not present. Calcified mediastinal lymph nodes IMPRESSION: Negative for a pulmonary embolism.
--- NOTE | 2023-03-02 19:16 | ER ---
Nurse's Notes [facility] Name: Will Harrison Jr Age: 67 yrs Sex: Male : 1955 Arrival Date: 03/02/2023 Time: 15:29 Bed 2 Private MD: Diagnosis: Acute embolism and thrombosis of unspecified deep veins of left lower extremity;Shortness of breath Presentation: 03/02 16:04 Chief complaint: Patient states: went to urgent care and they sent him here due to his iw swelling in left foot over past two weeks especially at night, now it's worse and my shoe feels tight, he was told he has edema in both his legs. Coronavirus screen: At this time, the client does not indicate any symptoms associated with coronavirus-19. Ebola Screen: Patient negative for fever greater than or equal to 101.5 degrees Fahrenheit, and additional compatible Ebola Virus Disease symptoms Patient denies exposure to infectious person. Patient denies travel to an Ebola-affected area in the 21 days before illness onset. No symptoms or risks identified at this time. Initial Sepsis Screen: Does the patient meet any 2 criteria? No. Patient's initial sepsis screen is negative. Does the patient have a suspected source of infection? No. Patient's initial sepsis screen is negative. Risk Assessment: Do you want to hurt yourself or someone else? Patient reports no desire to harm self or others. Onset of symptoms was February 15, 2023. 16:04 Method Of Arrival: Ambulatory iw 16:04 Acuity: PEACE 3 iw Historical: - Allergies: 16:07 Sulfa (Sulfonamide Antibiotics); iw - PMHx: 16:06 Hypertensive disorder; Hypercholesterolemia; iw - PSHx: 16:06 prostatectomy; iw - Immunization history:: Adult Immunizations up to date. - Social history:: Smoking status: unknown. Screenin:30 [facility] ED Fall Risk Assessment (Adult) History of falling in the last 3 months, rv including since admission No falls in past 3 months (0 pts). Abuse screen: Denies threats or abuse. Denies injuries from another. Nutritional screening: No deficits noted. Tuberculosis screening: No symptoms or risk factors identified. Assessment: 17:08 General: Appears in no apparent distress. Behavior is calm, cooperative, appropriate ll1 for age. Pain: Complains of pain in right leg and left leg Quality of pain is described as squeezing. Musculoskeletal: Circulation, motion, and sensation intact. Capillary refill < 3 seconds, Swelling present in right leg and left leg Reports pain in right leg and left leg. Vital Signs: 16:04 BP 154 / 95; Pulse 74; Resp 16; Temp 98.1; Pulse Ox 96% on R/A; Weight 110.68 kg; iw Height 5 ft. 10 in. ; Pain 0/10; 18:50 BP 150 / 93; Pulse 70; Resp 14; Pulse Ox 94% on R/A; ll1 16:04 Body Mass Index 35.01 (110.68 kg, 177.8 cm) iw 16:04 Pain Scale: Adult iw Ida Coma Score: 19:30 Eye Response: spontaneous(4). Motor Response: obeys commands(6). Verbal Response: rv oriented(5). Total: 15. ED Course: 15:30 Patient arrived in ED. am2 15:43 Christiano Gonzales MD is Attending Physician. bs3 15:43 Yaya Benavides PA is PHCP. cp 16:05 Triage completed. iw 16:06 Arm band placed on. iw 16:49 Luisana Koch RN is Primary Nurse. ll1 16:51 US Extremity Venous W Compression Guilherme In Process Unspecified. EDMS 17:05 XRAY Chest (1 view) In Process Unspecified. EDMS 17:07 Patient placed in an exam room, on a stretcher. ll1 17:15 Inserted saline lock: 22 gauge in right antecubital area, using aseptic technique. ll1 Blood collected. 18:22 CT Chest For PE Angio In Process Unspecified. EDMS 19:08 Primary Nurse role handed off by Luisana Koch RN jl7 19:30 Maik De Luna, CHRISTINA is Primary Nurse. rv 19:30 Patient has correct armband on for positive identification. Client placed on continuous rv cardiac and pulse oximetry monitoring. NIBP monitoring applied. panel monitor on. 19:31 No provider procedures requiring assistance completed. IV discontinued, intact, rv bleeding controlled, No redness/swelling at site. Pressure dressing applied. 19:32 Primary Nurse role handed off by Maik De Luna, CHRISTINA rv Administered Medications: 19:20 Drug: Xarelto PO 20 mg Route: PO; rv 19:34 Follow up: Response: Medication administered at discharge. rv 19:32 Not Given (change doses): Xarelto PO 15 mg PO once rv Medication: 19:30 VIS not applicable for this client. rv Outcome: 19:16 Discharge ordered by . cp 19:31 Discharged to home ambulatory, with family. rv 19:31 Condition: good 19:31 Discharge instructions given to patient, family, Instructed on discharge instructions, follow up and referral plans. medication usage, Demonstrated understanding of instructions, follow-up care, medications, Prescriptions given X 1. 19:31 Patient left the ED. rv 19:34 Patient left the ED. rv Signatures: Dispatcher [employer] EDMS Alyssa Barahona RN RN Yaya Lay PA PA cp Leal, Jahala RN RN jl7 Ivy Gilmore Ronaldo, RN RN Luisana Mcnamara RN RN ll1 Christiano Gonzales MD MD bs3
--- NOTE | 2023-03-02 19:16 | EDPHYS ---
Physician Documentation [facility] Name: Will Harrison Jr Age: 67 yrs Sex: Male : 1955 Arrival Date: 03/02/2023 Time: 15:29 Bed 2 Private MD: ED Physician Christiano Gonzales HPI: 03/02 16:20 This 67 yrs old Male presents to ER via Ambulatory with complaints of Leg Swelling. cp 16:20 The patient presents with swelling. The complaints affect the left foot and left lower cp leg. Context: resulted from an unknown cause, the patient can fully bear weight, the patient is able to ambulate, without difficulty, Problem is a result from a previous injury: No. Onset: The symptoms/episode began/occurred 2 week(s) ago. Associated signs and symptoms: Pertinent positives: shortness of breath, Pertinent negatives fever, warmth, chest pain. Severity of symptoms: in the emergency department the symptoms are unchanged, despite home interventions. Patient reports having prostate surgery in September 2023 with no complications. Historical: - Allergies: 16:07 Sulfa (Sulfonamide Antibiotics); iw - PMHx: 16:06 Hypertensive disorder; Hypercholesterolemia; iw - PSHx: 16:06 prostatectomy; iw - Immunization history:: Adult Immunizations up to date. - Social history:: Smoking status: unknown. ROS: 16:25 Constitutional: Negative for body aches, chills, fever, poor PO intake. cp 16:25 Eyes: Negative for injury, pain, redness, and discharge. cp 16:25 ENT: Negative for drainage from ear(s), ear pain, sore throat, difficulty swallowing, difficulty handling secretions. 16:25 Cardiovascular: Positive for edema, Negative for chest pain, palpitations. 16:25 Respiratory: Positive for orthopnea, shortness of breath, on exertion. Negative for cough, wheezing. 16:25 Abdomen/GI: Negative for abdominal pain, nausea, vomiting, and diarrhea, constipation. 16:25 Back: Negative for pain at rest, pain with movement. 16:25 Skin: Negative for cellulitis, rash. 16:25 Neuro: Negative for altered mental status, dizziness, headache, syncope, weakness. 16:25 All other systems are negative. Exam: 16:30 Constitutional: The patient appears in no acute distress, alert, awake, comfortable, cp non-diaphoretic, non-toxic, well developed, well nourished. 16:30 Head/Face: Normocephalic, atraumatic. cp 16:30 Eyes: Periorbital structures: appear normal, Conjunctiva: normal, no exudate, no injection, Sclera: no appreciated abnormality, Lids and lashes: appear normal, bilaterally. 16:30 ENT: External ear(s): are unremarkable, Nose: is normal, Mouth: Lips: moist, Oral mucosa: pink and intact, moist, Posterior pharynx: is normal, airway is patent, no erythema, no exudate. 16:30 Neck: ROM/movement: is normal, is supple, without pain, no range of motions limitations. 16:30 Chest/axilla: Inspection: normal. 16:30 Cardiovascular: Rate: normal, Rhythm: regular, Edema: ankle edema, that is mild, JVD: is not appreciated. 16:30 Respiratory: the patient does not display signs of respiratory distress, Respirations: normal, no use of accessory muscles, no retractions, labored breathing, is not present, Breath sounds: are clear throughout, no decreased breath sounds, no stridor, no wheezing. 16:30 Abdomen/GI: Inspection: obese Bowel sounds: active, all quadrants, Palpation: abdomen is soft and non-tender, in all quadrants. 16:30 Back: pain, is absent, ROM is normal. 16:30 Skin: cellulitis, is not appreciated, no rash present. 17:30 ECG was reviewed by the Attending Physician. cp Vital Signs: 16:04 BP 154 / 95; Pulse 74; Resp 16; Temp 98.1; Pulse Ox 96% on R/A; Weight 110.68 kg; iw Height 5 ft. 10 in. ; Pain 0/10; 18:50 BP 150 / 93; Pulse 70; Resp 14; Pulse Ox 94% on R/A; ll1 16:04 Body Mass Index 35.01 (110.68 kg, 177.8 cm) iw 16:04 Pain Scale: Adult iw Ida Coma Score: 19:30 Eye Response: spontaneous(4). Motor Response: obeys commands(6). Verbal Response: rv oriented(5). Total: 15. MDM: 15:43 Patient medically screened. bs3 17:00 Differential diagnosis: DVT, CHF, cellulitis, dependent edema. cp 19:15 Data reviewed: vital signs, nurses notes, lab test result(s), EKG, radiologic studies, cp CT scan, plain films, ultrasound. 19:15 Consideration of Admission/Observation Escalation of care including cp admission/observation considered. I considered the following discharge prescriptions or medication management in the emergency department Medications were administered in the Emergency Department. See MAR. Counseling: I had a detailed discussion with the patient and/or guardian regarding: the historical points, exam findings, and any diagnostic results supporting the discharge/admit diagnosis, lab results, radiology results, to return to the emergency department if symptoms worsen or persist or if there are any questions or concerns that arise at home. Response to treatment: the patient's symptoms have markedly improved after treatment, and as a result, I will discharge patient. 03/02 16:14 Order name: Basic Metabolic Panel; Complete Time: 18:03 cp 03/02 18:04 Interpretation: Normal except: CL 110. 03/02 16:14 Order name: CBC with Diff; Complete Time: 17:35 cp 03/02 17:35 Interpretation: Normal except: HGB 11.3; HCT 35.6; MCV 65.9; MCH 20.9; MCHC 31.7; RDW cp 17.0. 03/02 16:14 Order name: Magnesium; Complete Time: 18:03 cp 03/02 16:14 Order name: NT PRO-BNP; Complete Time: 18:03 cp 03/02 18:04 Interpretation: NT PRO-BNP 91; Reviewed. 03/02 16:14 Order name: PT-INR; Complete Time: 17:35 cp 03/02 16:14 Order name: Troponin HS; Complete Time: 18:03 cp 03/02 18:04 Interpretation: Reviewed. 03/02 16:14 Order name: XRAY Chest (1 view); Complete Time: 17:26 cp 03/02 16:14 Order name: US Extremity Venous W Compression Guilherme; Complete Time: 17:26 cp 03/02 17:29 Interpretation: Report reviewed. 03/02 17:29 Order name: CT Chest For PE Angio; Complete Time: 18:47 cp 03/02 16:14 Order name: EKG; Complete Time: 16:15 cp 03/02 16:14 Order name: Cardiac monitoring; Complete Time: 17:22 cp 03/02 16:14 Order name: EKG - Nurse/Tech; Complete Time: 17:22 cp 03/02 16:14 Order name: IV Saline Lock; Complete Time: 17:16 cp 03/02 16:14 Order name: Labs collected and sent; Complete Time: 17:16 cp 03/02 16:14 Order name: O2 Per Protocol; Complete Time: 16:54 cp 03/02 16:14 Order name: O2 Sat Monitoring; Complete Time: 16:53 cp EC:30 Rate is 62 beats/min. Rhythm is regular. TN interval is normal. QRS interval is normal. cp QT interval is normal. T waves are Inverted in leads III, aVR. Interpreted by me. Reviewed by me. Administered Medications: 19:20 Drug: Xarelto PO 20 mg Route: PO; rv 19:34 Follow up: Response: Medication administered at discharge. rv 19:32 Not Given (change doses): Xarelto PO 15 mg PO once rv Disposition Summary: 03/02/23 19:16 Discharge Ordered Location: Home cp Problem: new cp Symptoms: have improved cp Condition: Stable cp Diagnosis - Acute embolism and thrombosis of unspecified deep veins of left lower extremity cp - Shortness of breath cp Followup: cp - With: Private Physician - When: 1 week - Reason: Recheck today's complaints Discharge Instructions: - Deep Vein Thrombosis cp - Shortness of Breath, Adult cp - Discharge Summary Sheet ll1 Forms: - Medication Reconciliation Form cp - Thank You Letter cp - Antibiotic Education cp - Prescription Opioid Use cp - SBAR form ll1 Prescriptions: - Xarelto 15 mg Oral Tablet - take 1 tablet by ORAL route 2 times per day for 21 days; 42 tablet; Refills: 0, cp Product Selection Permitted Signatures: Dispatcher [employer] Alyssa Forman RN RN Yaya Lay PA PA cp Maik De Luna RN RN rv Stein, Brandon, MD MD bs3
[2023-03-02] MEDS ORDERED: RIVAROXABAN 20 MG TABLET PO ONE (19:27)
[2023-03-02 19:39] VITALS: TEMP 98.1
[2023-03-02 19:40] VITALS: BP 150/93; O2SAT 94
--- NOTE | 2023-03-03 14:37 | EKG ---
Test Date: 2023-03-02 Test Time: 17:23:37 Press Leader: DOLLY MEASUREMENT RESULTS: Intervals: Rate: 62 MT: 172 QRSD: 88 QT: 386 QTc: 391 Martin: P: 54 MT: 172 QRS: -24 T: 13 INTERPRETIVE STATEMENTS: Normal sinus rhythm Normal ECG Compared to ECG 03/22/2015 15:23:52 No significant changes Electronically Signed On 03-03-23 14:36:22 CDT by Govind Glez
== END 2023-03-02 19:34 | disposition home or self-care (01) ==
LOC: ER 15:29
DX: I82.402 Acute embolism and thrombosis of unspecified deep veins of left lower extremity (principal); I10 Essential (primary) hypertension; Z88.0 Allergy status to penicillin
CPT/HCPCS: 93005; 85025; 80048; 36415; 83735; 85610; 84484; 83880; 71275; 71045; 93970; 99284; Q9967